=== PATIENT | male | born 1945 | race Caucasian/White ===

== ENCOUNTER 2016-05-16 17:16 | Emergency (ER) | payer OTHER ==
[~2016-05-16] VITALS: Ht 182.9 cm; Wt 115.0 kg
[2016-05-16 18:30] LABS: HEMATOCRIT 44.8 % (38.0-50.0); MCHC 34.4 G/DL (30.0-36.0); MCV 87.3 FL (86-99); MEAN PLAT.VOLUME 9.3 uM^3 (9.0-12.4); PLATELET COUNT 309 K/uL (156-360); RBC DIS.WIDTH-SD 40.2 % (39-53); RED BLOOD COUNT 5.13 M/uL (4.00-5.50); WHITE BLOOD COUNT 12.7 K/uL (4.1-10.2)
[2016-05-16 18:38] LABS: CHLORIDE 100 mEq/L (99-109); POTASSIUM 3.8 mEq/L (3.7-5.4); SODIUM 137 mEq/L (136-147)
[2016-05-16 18:40] LABS: GLUCOSE 122 mg/dL (70-99)
[2016-05-16 18:41] LABS: ANION GAP 13 MEQ/L (2-14)
[2016-05-16 18:43] LABS: ALKALINE PHOSPHATASE 51 IU/L (3-129)
[2016-05-16 18:44] LABS: GFR ESTIMATE (CALCULATED) > 59 mL/min/
[2016-05-16 18:45] LABS: UREA NITROGEN (BUN) 19 mg/dL (9-23)
[2016-05-16 19:07] LABS: TOTAL BILIRUBIN 0.5 mg/dL (0.0-1.0)
[2016-05-16 19:56] VITALS: BP 141/102
== END 2016-05-16 20:10 | disposition home or self-care (01) ==
LOC: EME 17:16
DX: E11.65 Type 2 diabetes mellitus with hyperglycemia (principal); H10.9 Unspecified conjunctivitis; I10 Essential (primary) hypertension; T38.0X5A Adverse effect of glucocorticoids and synthetic analogues, initial encounter; Z88.1 Allergy status to other antibiotic agents; Z88.6 Allergy status to analgesic agent
CPT/HCPCS: 80053; 85027; 99281; 99284